=== PATIENT | male | born 1995 | race Hispanic/Latino ===

== ENCOUNTER 2018-10-26 14:01 | Emergency (ER) | payer OTHER | END 2018-10-26 15:53 | disposition home or self-care (01) | LOC: EEVIPCON 14:01 → EDH 14:01 | DX: J06.9 Acute upper respiratory infection, unspecified (principal); Z72.0 Tobacco use | CPT/HCPCS: 87804 ==

== ENCOUNTER 2020-10-28 20:59 | Emergency (ER) | payer SELFPAY ==
[2020-10-28] MEDS ORDERED: CEPHALEXIN 500 MG CAPSULE ONE (21:28)
[2020-10-28] MEDS ORDERED: TETANUS/DIPHTHERIA TOXOID [ADULT] 0.5 ML VIAL IM ONE (21:29)
[2020-10-28] MEDS ORDERED: HYDROCODONE/ACETAMINOPHEN 10/325 MG TAB ONE (21:29)
[2020-10-28] MEDS ORDERED: CEFAZOLIN SODIUM 1 GM VIAL ONE (22:00)
== END 2020-10-28 22:29 | disposition home or self-care (01) ==
LOC: EDH 20:59
DX: S02.2XXA Fracture of nasal bones, initial encounter for closed fracture (principal); S01.21XA Laceration without foreign body of nose, initial encounter; X58.XXXA Exposure to other specified factors, initial encounter; Y93.89 Activity, other specified; Y92.69 Other specified industrial and construction area as the place of occurrence of the external cause; Y99.8 Other external cause status
CPT/HCPCS: 12011; 70160; 90471; 90714; 96372; 99284; J0690

== ENCOUNTER 2024-11-19 21:57 | Emergency (ER) | payer SELFPAY ==
[~2024-11-19] VITALS: Ht 162.6 cm; Wt 66.0 kg
[2024-11-19] MEDS ORDERED: AMOX-426 PO (22:29)
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
[2024-11-19] MEDS: AMOX/CLAV 875/125MG TAB PO ONE (22:49)
[2024-11-19 22:51] VITALS: BP 132/56; PULSE 85; RESP 18; TEMP 99.1; O2SAT 99
== END 2024-11-19 23:19 | disposition home or self-care (01) ==
LOC: EDH 21:57
DX: L08.9 Local infection of the skin and subcutaneous tissue, unspecified (principal); L03.116 Cellulitis of left lower limb
CPT/HCPCS: 10060; 99283

== ENCOUNTER 2024-11-24 11:35 | Inpatient (IN) | payer SELFPAY ==
[~2024-11-24] VITALS: Ht 162.6 cm; Wt 61.6 kg
[~2024-11-24 11:35] MED LIST: AMOX-426 PO
[2024-11-24 12:25] LABS: BASOPHILS # (AUTO) 0.06 K/uL (0.00-0.20); BASOPHILS % (AUTO) 0.7 % (0.0-5.0); EOSINOPHILS # (AUTO) 0.23 K/uL (0.00-0.70); EOSINOPHILS % (AUTO) 2.6 % (0.0-8.0); HEMATOCRIT 44.8 % (42-54); IMMATURE GRANULOCYTE ABSOLUTE 0.05 K/uL (0-1); LYMPHOCYTES # (AUTO) 1.8 K/uL (1.0-4.8); LYMPHOCYTES % (AUTO) 20.3 % (21.0-51.0); MEAN CORPUSCULAR HEMOGLOBIN 33.2 pg (27.0-33.0); MEAN CORPUSCULAR HGB CONC 35.3 g/dL (32.0-36.0); MEAN CORPUSCULAR VOLUME 94.1 fL (79-99); MONOCYTES # (AUTO) 0.8 K/uL (0.1-1.0); MONOCYTES % (AUTO) 8.8 % (3.0-13.0); NEUTROPHILS # (AUTO) 5.9 K/uL (1.8-7.7); PLATELET COUNT (AUTO) 419 K/uL (130-400); RED BLOOD CELL COUNT(AUTO) 4.76 MIL/uL (4.50-6.20); WHITE BLOOD COUNT (AUTO) 8.7 K/uL (4.8-10.8)
[2024-11-24 12:32] LABS: CREATININE 0.9 mg/dL (0.5-1.3); POTASSIUM 4.2 mmol/L (3.5-5.1)
--- NOTE | 2024-11-24 12:45 | HMCIMG ---
Exam Type: TIBIA/FIBULA 2VWS LT Clinical Information: Rule out osteomyelitis Comparison: None Findings: The bone examination is unremarkable. No fractures or dislocations are seen. No radiopaque foreign bodies are noted. No bone destruction to suggest osteomyelitis. Pretibial soft tissues are prominent consistent with cellulitis and there is an open laceration or skin ulcer anterior mid leg level. IMPRESSION: Possible cellulitis. No osteomyelitis.
[2024-11-24] MEDS: 0.9%NACL 1000ML 1,000 ML IV ONE (13:05)
[2024-11-24 13:33] LABS: ERYTHROCYTE SEDIMENTATION RATE 17 MM/HR (0-15)
[2024-11-24] MEDS ORDERED: MAG/ALUM/SIMETH 30 ML UDCUP PO PRN (14:30)
[2024-11-24] MEDS ORDERED: acetaMINOPHEN 325 MG TAB PO PRN (14:30)
[2024-11-24] MEDS ORDERED: GLUCAGON 1MG KIT 1 MG ML IM PRN (14:30)
[2024-11-24] MEDS ORDERED: guaiFENesin-DM 200/20MG 10ML PO PRN (14:30)
[2024-11-24] MEDS ORDERED: MAGNESIUM 2GM PREMIX 50ML 50 ML IV PRN (14:30)
[2024-11-24] MEDS ORDERED: NITROGLYCERIN 0.4 MG SL TAB SL PRN (14:30)
[2024-11-24] MEDS ORDERED: DEXTROSE 50%-WATER 50 ML DISP.SYRIN IV PRN (14:30)
[2024-11-24] MEDS ORDERED: PoTASSium chloRIDE 10MEQ/100ML 100 ML IV PRN (14:30)
[2024-11-24] MEDS ORDERED: LACTULOSE 20 GM/30 ML UDCUP PO PRN (14:30)
[2024-11-24] MEDS ORDERED: DiphenhydrAMINE HCL 50 MG/ML VIAL IV PRN (14:30)
[2024-11-24] MEDS ORDERED: ondanSETRON 4MG INJ IV PRN (14:30)
[2024-11-24] MEDS ORDERED: ZOLPidem TARTrate 5 MG TAB PO PRN (14:30)
[2024-11-24] MEDS ORDERED: PoTASSium chl 10% ELIXIR 20MEQ 20 MEQ/15 ML UDCUP PO PRN (14:30)
[2024-11-24] MEDS ORDERED: oxyCODONE/aceTAMIN 5/325MG TAB PO PRN (14:30)
[2024-11-24] MEDS ORDERED: FAMOTIDINE 20MG VIAL IV PRN (14:30)
[2024-11-24] MEDS ORDERED: traMADol /APAP 37.5MG/325MG TAB PO PRN (14:30)
--- NOTE | 2024-11-24 14:54 | EKG ---
[facility] Test Date: 2024-11-24 Test Time: 14:06:32 Pat Name: MARLON KEITH Department: EDHIP Room: 408 Gender: M Collections Curator: [id number] : 1995 Requested By: AMAURY MUÑOZ Order Number: [id number] Reading MD: Riley Canales Measurements Intervals [place] Rate: 86 P: 48 NH: 131 QRS: 40 QRSD: 70 T: -7 QT: 353 QTc: 423 Interpretive Statements Sinus rhythm No previous ECG available for comparison Electronically Signed On 11-24-2024 18:59:40 CDT by Riley Canales Please click the below link to view image of tracing.
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
--- NOTE | 2024-11-24 15:45 | HMCIMG ---
Exam Type: CHEST 1VW Clinical Information: congestion Comparison: None Findings: The lungs are clear of infiltrates. The heart is normal in size. The bony and soft tissue structures of the chest are unremarkable. Impression: Clear lungs.
--- NOTE | 2024-11-24 15:54 | NUR ---
DCP:HOME Pt currently lives with mom Yoana Scherer [phone] in their home. Pt denies any insecurities with food, halfway, and/or utilities. Pt does not have DME, home health, or provider services. Pt is able to complete ADLs independently. Pt currently works at [employer]. Pt does not currently have a PCP, SW provided pt with community resources with clinic information. At [place] pt will return home and mom can assist with transportation. Addendum: 11/24/24 at 1557 by YUMIKO AKBAR SS Amended: Links added.
--- NOTE | 2024-11-24 16:14 | HMCIMG ---
Exam Type: MR TIBFIB LEFT WO Clinical Information: osteomylitis Comparison: None Findings: The bone examination is unremarkable. No fractures or dislocations are seen. No radiopaque foreign bodies are noted. No bone destruction to suggest osteomyelitis. No marrow edema. Soft tissue laceration anterior mid leg. Increased fluid throughout the adjacent anterior leg subcutaneous tissues consistent with cellulitis. IMPRESSION: No osteomyelitis. Left leg cellulitis with soft tissue laceration.
[2024-11-24] MEDS: INSULIN humuLIN R 100 UNIT/ML 3ML SQ SCH (16:30)
[2024-11-24] MEDS: hydrALAZine 20MG/ML VIAL IV PRN (16:33)
[2024-11-24] MEDS: ketOROlac 15MG/ML VIAL (15MG/ML) IV PRN (16:33)
[2024-11-24] MEDS: ZOSYN 3.375GM+NS 50ML 50 ML IV SCH (16:34)
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
[2024-11-24 17:27] LABS: APPEARANCE,URINE CLEAR (CLEAR); BILIRUBIN,URINE NEGATIVE (NEGATIVE); COLOR,URINE COLORLESS (YELLOW); GLUCOSE, URINE (UA) NEGATIVE (NEGATIVE); KETONES,URINE NEGATIVE (NEGATIVE); LEUKOCYTE ESTERASE ,URINE NEGATIVE Leu/uL (NEGATIVE); NITRATE,URINE NEGATIVE (NEGATIVE); OCCULT BLOOD,URINE NEGATIVE (NEGATIVE); PH,URINE 6.5 (5.0-8.0); PROTEIN,URINE NEGATIVE (NEGATIVE); UROBILINOGEN,URINE 0.2 mg/dL (0.2-1.0)
[2024-11-24 17:28] LABS: MUCUS,URINE RARE LPF (None Seen); WBC,URINE 0-1 /HPF (0-1)
[2024-11-24] MEDS: amLODIPine 5 MG TAB PO ONE (17:40)
--- NOTE | 2024-11-24 17:41 | NUR ---
patient has elevated blood pressure of 156/105, let karan parker aware and she ordered amlodipine 5mg po once patient denies any chest any pain and sob patient resting in bed, call light in reach mom at bedside
--- NOTE | 2024-11-24 18:30 | NUR ---
ADMISSION Pt was admitted into the unit. A&Ox4. BUE & BLE pulses strong & palpable. Cap refill less than 3 secs. PEERLA. Abdomen non distended, & soft. Bowels hyperactive x 4. Skin normal for ethnicity. IV on LA patent & intact 20 G. Saline lock. Lung sounds clear on all lobes. RLE laceration wrapped with kerlix. No s/s of distress. provided teaching regarding call light & needing assitance. Bed locked & to lowest level. Side rails up x 2.
[2024-11-24 18:40] LABS: AMPHET/METH SCREEN,URINE NEGATIVE (NEGATIVE); BARBITURATE SCREEN, URINE NEGATIVE (NEGATIVE); BENZODIAZEPINES SCREEN,URINE POSITIVE (NEGATIVE); CANNABINOID SCREEN,URINE POSITIVE (NEGATIVE); COCAINE SCREEN,URINE NEGATIVE (NEGATIVE); OPIATE SCREEN,URINE NEGATIVE (NEGATIVE); PHENCYCLIDINE SCREEN,URINE NEGATIVE (NEGATIVE)
[2024-11-24 19:00] VITALS: O2SAT 95
[2024-11-24 20:07] VITALS: BP 158/99; PULSE 101; RESP 19; TEMP 98.3
[2024-11-24] MEDS: morPHINE 2 MG SYG IVP PRN (20:28)
[2024-11-24] MEDS: FAMOTIDINE 20MG VIAL IV SCH (20:28)
[2024-11-24] MEDS: HEParin 5,000 UNIT VIAL SQ SCH (20:44)
[2024-11-24 23:14] VITALS: BP 166/100; PULSE 101; RESP 19; TEMP 98.3
[2024-11-25] VITALS (8 sets, daily range): BP systolic 136–169; BP diastolic 95–109; PULSE 114–130; RESP 17–18; TEMP 98–99; O2SAT 99
[2024-11-25 04:36] LABS: BASOPHILS # (AUTO) 0.07 K/uL (0.00-0.20); BASOPHILS % (AUTO) 0.7 % (0.0-5.0); EOSINOPHILS # (AUTO) 0.23 K/uL (0.00-0.70); EOSINOPHILS % (AUTO) 2.2 % (0.0-8.0); IMMATURE GRANULOCYTE ABSOLUTE 0.07 K/uL (0-1); LYMPHOCYTES # (AUTO) 1.8 K/uL (1.0-4.8); MEAN CORPUSCULAR HEMOGLOBIN 32.8 pg (27.0-33.0); MEAN CORPUSCULAR HGB CONC 35.2 g/dL (32.0-36.0); MONOCYTES # (AUTO) 0.9 K/uL (0.1-1.0); MONOCYTES % (AUTO) 8.6 % (3.0-13.0); NEUTROPHILS # (AUTO) 7.5 K/uL (1.8-7.7); NEUTROPHILS % (AUTO) 70.8 % (40.0-77.0); PLATELET COUNT (AUTO) 446 K/uL (130-400); RED BLOOD CELL COUNT(AUTO) 4.73 MIL/uL (4.50-6.20); WHITE BLOOD COUNT (AUTO) 10.5 K/uL (4.8-10.8)
[2024-11-25 04:38] LABS: HEMOGLOBIN A1C 5.5 % (4.0-6.0)
[2024-11-25 05:23] LABS: ALBUMIN 3.9 g/dL (3.5-5.0); BILIRUBIN,DIRECT 0.1 mg/dL (0.0-0.3); BILIRUBIN,TOTAL 0.4 mg/dL (0.2-1.0); CREATININE 0.7 mg/dL (0.5-1.3); MAGNESIUM 2.2 mg/dL (1.80-2.40); POTASSIUM 3.8 mmol/L (3.5-5.1); TOTAL PROTEIN, SERUM 7.5 g/dL (6.0-8.3)
[2024-11-25] MEDS ORDERED: PHARMACY COMMUNICATION MISC PRN (09:30)
[2024-11-25] MEDS ORDERED: ondanSETRON 4MG INJ IV PRN (09:30)
[2024-11-25] MEDS ORDERED: chlordiazePOXIDE HCL 25 MG CAP PO PRN (09:30)
[2024-11-25 10:34] LABS: COVID19 (SARS ANTIGEN RAPID) PRESUMPTIVE NEGATIVE (NEGATIVE); INFLUENZA TYPE A Negative For Type A (NEGATIVE); INFLUENZA TYPE B Negative For Type B (NEGATIVE)
[2024-11-25] MEDS: PoTASSium chloRIDE 10MEQ SR 10 MEQ/TAB TAB.SR.24H PO PRN (11:38)
--- NOTE | 2024-11-25 14:14 | NUR ---
[facility] Consult: Patient assessed by wound healing team. See wound assessment. Assessment and recommendations provided to primary nurse. Education provided. Addendum: 11/26/24 at 1251 by ELIZABETH FRANCO RN RN/ Amended: Links added.
[2024-11-25] MEDS ORDERED: GLUCAGON 1MG KIT 1 MG ML IM PRN (16:00)
[2024-11-25] MEDS ORDERED: DEXTROSE 50%-WATER 50 ML DISP.SYRIN IV PRN (16:00)
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
[2024-11-25] MEDS: INSULIN humuLIN R 100 UNIT/ML 3ML SQ SCH (16:30)
[2024-11-25] MEDS: chlordiazePOXIDE HCL 25 MG CAP PO PRN (16:34)
[2024-11-25] MEDS: HONEY 1 APPL/ML TUBE TP SCH (18:25)
[2024-11-26] VITALS (8 sets, daily range): BP systolic 139–159; BP diastolic 93–103; PULSE 92–104; RESP 17–18; TEMP 98.3–98.7; O2SAT 96–98
[2024-11-26 04:08] LABS: BASOPHILS # (AUTO) 0.06 K/uL (0.00-0.20); BASOPHILS % (AUTO) 0.7 % (0.0-5.0); EOSINOPHILS # (AUTO) 0.08 K/uL (0.00-0.70); IMMATURE GRANULOCYTE ABSOLUTE 0.03 K/uL (0-1); LYMPHOCYTES # (AUTO) 2.1 K/uL (1.0-4.8); LYMPHOCYTES % (AUTO) 26.4 % (21.0-51.0); MEAN CORPUSCULAR HEMOGLOBIN 32.5 pg (27.0-33.0); MEAN CORPUSCULAR HGB CONC 34.7 g/dL (32.0-36.0); MEAN CORPUSCULAR VOLUME 93.8 fL (79-99); MONOCYTES # (AUTO) 0.8 K/uL (0.1-1.0); MONOCYTES % (AUTO) 9.8 % (3.0-13.0); NEUTROPHILS % (AUTO) 61.7 % (40.0-77.0); PLATELET COUNT (AUTO) 491 K/uL (130-400); RED BLOOD CELL COUNT(AUTO) 5.01 MIL/uL (4.50-6.20); RED CELL DISTRIBUTION WIDTH 12.1 % (11.0-15.5); WHITE BLOOD COUNT (AUTO) 8.1 K/uL (4.8-10.8)
[2024-11-26 04:26] LABS: ALBUMIN 3.9 g/dL (3.5-5.0); BILIRUBIN,TOTAL 0.6 mg/dL (0.2-1.0); CREATININE 0.9 mg/dL (0.5-1.3); MAGNESIUM 2.5 mg/dL (1.80-2.40); POTASSIUM 4.1 mmol/L (3.5-5.1); TOTAL PROTEIN, SERUM 7.8 g/dL (6.0-8.3)
[2024-11-26] MEDS: THIAMINE HCL 100 MG/ML 2ML VIAL IM SCH (09:04)
[2024-11-26] MEDS: FOLic ACID 1 MG TABLET PO SCH (09:04)
[2024-11-26] MEDS: amLODIPine 5 MG TAB PO SCH (09:04)
[2024-11-26] MEDS: MULTIVITAMIN TABLET PO SCH (09:04)
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
--- NOTE | 2024-11-26 14:40 | NUR ---
Wound care teaching to pt and familly is done. This check writer salesperson whent over the proces of removing, cleaning the wound and how to appy medhoney and reaply new dressing.
[2024-11-27] VITALS (7 sets, daily range): BP systolic 135–163; BP diastolic 76–116; PULSE 80–128; RESP 17–19; TEMP 97.8–98.7; O2SAT 96–98
[2024-11-27 04:22] LABS: BASOPHILS # (AUTO) 0.07 K/uL (0.00-0.20); BASOPHILS % (AUTO) 0.6 % (0.0-5.0); EOSINOPHILS # (AUTO) 0.12 K/uL (0.00-0.70); HEMATOCRIT 44.1 % (42-54); IMMATURE GRANULOCYTE ABSOLUTE 0.05 K/uL (0-1); LYMPHOCYTES # (AUTO) 2.7 K/uL (1.0-4.8); MEAN CORPUSCULAR HEMOGLOBIN 32.3 pg (27.0-33.0); MEAN CORPUSCULAR HGB CONC 34.5 g/dL (32.0-36.0); MEAN CORPUSCULAR VOLUME 93.6 fL (79-99); PLATELET COUNT (AUTO) 438 K/uL (130-400); RED BLOOD CELL COUNT(AUTO) 4.71 MIL/uL (4.50-6.20); RED CELL DISTRIBUTION WIDTH 11.9 % (11.0-15.5); WHITE BLOOD COUNT (AUTO) 11.9 K/uL (4.8-10.8)
[2024-11-27 04:36] LABS: ALBUMIN 3.8 g/dL (3.5-5.0); BILIRUBIN,TOTAL 0.6 mg/dL (0.2-1.0); CREATININE 0.8 mg/dL (0.5-1.3); MAGNESIUM 2.3 mg/dL (1.80-2.40); POTASSIUM 3.7 mmol/L (3.5-5.1); TOTAL PROTEIN, SERUM 7.5 g/dL (6.0-8.3)
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
--- NOTE | 2024-11-27 14:59 | NUR ---
[facility] LIAISON NOTIFIED OF PATIENTS ELEVATED HEART RATE IN THE 120 -130S WITH NEW ORDERS.
[2024-11-27] MEDS: acetaMINOPHEN 325 MG TAB PO PRN ×2 (16:19→22:49)
[2024-11-27] MEDS: amLODIPine 5 MG TAB PO ONE (16:19)
--- NOTE | 2024-11-27 17:40 | NUR ---
ALE[facility]ANDRO [facility] PALEONTOLOGIST NOTIFIED OF PATIENTS HEART RATE AND BLOOD PRESSURE CONTINUE TO BE HIGH PATIENT RECEIVED BOTH NEW MEDICATIONS PER PREVIOUS ORDERS .NO NEW ORDERS AT THIS TIME.
[2024-11-27] MEDS: hydrALAZine 25MG TABLET PO SCH (17:47)
[2024-11-28] VITALS: BP 136/90; PULSE 103; RESP 20; TEMP 98
[2024-11-28 04:00] VITALS: BP 152/92; PULSE 92; RESP 20; TEMP 97.9
[2024-11-28 08:25] VITALS: BP 149/100; PULSE 100; RESP 16; TEMP 98.1
[2024-11-28] MEDS: amLODIPine 5 MG TAB PO SCH (08:34)
[2024-11-28] MEDS ORDERED: THIAMINE HCL 100 MG/ML 2ML VIAL IV SCH (09:00)
[2024-11-28] MEDS ORDERED: HYDR25 PO (09:03)
[2024-11-28] MEDS ORDERED: AMLO5TAB4 PO (09:03)
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
[2024-11-28] MEDS ORDERED: LEVO750T90 PO (09:26)
[2024-11-28] MEDS ORDERED: AMOX500T2 PO (09:26)
[2024-11-28] MEDS ORDERED: hydrALAZine 25MG TABLET PO ONE (09:30)
--- NOTE | 2024-11-28 13:38 | NUR ---
PRIOR TO DISCHARGE PATIENT GIVEN INSTRUCTION ON DRESSING CHANGE WHILE CHANGING HIS DRESSING PATIENT AND FAMILY MEMBER VERBALIZED UNDERSTANDING WOUND BED CLEAN PINK WITH SOME MINOR REDNESS.INSTRUCTED PATIENT AND DAD ON SYMPTOMS TO LOOK FOR REDNESS FOUL DISCHARGE LOW GRADE TEMPERATURES OR RED STREAKING OUTWARD FROM WOUND BED. THAT WOULD BE INDICATIVE OF AN INFECTED WOUND SITE REQUIRING IMMEDIATE MEDICAL TREATMENT.DISCHARGE INSTRUCTIONS GIVEN AT THIS TIME AND IMPORTANCE OF TAKING SCHEDULED BLOOD PRESSURE MEDS AND KEEPING UP WITH FOLLOW UP TREATMENT FOR WOUND AND BLOOD PRESSURE.PATENT VERBALIZED UNDERSTANDING.
== END 2024-11-28 13:55 | disposition home or self-care (01) | DRG 603 ==
LOC: EDH 11:35 → EDHIP 11:36 → UNDOADMIN 14:50 → EDHIP 14:50 → 4BH 18:31
PROVIDERS: ADMIT Internal Medicine; ATTEND Internal Medicine
DX: L03.116 Cellulitis of left lower limb (principal); L97.929 Non-pressure chronic ulcer of unspecified part of left lower leg with unspecified severity; S81.812A Laceration without foreign body, left lower leg, initial encounter; E11.622 Type 2 diabetes mellitus with other skin ulcer; F10.10 Alcohol abuse, uncomplicated; I10 Essential (primary) hypertension; W18.39XA Other fall on same level, initial encounter; Y93.89 Activity, other specified; Y92.89 Other specified places as the place of occurrence of the external cause; Y99.8 Other external cause status
CPT/HCPCS: 36415; 71045; 73590; 73718; 80048; 80053; 80076; 80305; 81001; 82550; 82948; 83036; 83605; 83690; 83735; 83880; 84132; 84145; 85025; 85651; 87070; 87076; 87086; 87186; 87426; 87804; 93005; 96374; 96375; 99285; G0378; J0360; J1644; J1885; J2270; J2543; J3411; J3490; A4600